=== PATIENT | male | born 1990 | race Caucasian/White ===

== ENCOUNTER 2018-08-29 16:58 | Emergency (ER) | payer BC ==
--- NOTE | 2018-08-29 17:59 | ER ---
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 Transition of care: patient was not received from another setting of care. Onset of symptoms was August 29, 2018. Risk Assessment: Do you want to hurt yourself or someone else? Patient reports no desire to harm self or others. Initial Sepsis Screen: Does the patient meet any 2 criteria? No. Patient's initial sepsis screen is negative. Does the patient have a suspected source of infection? No. Patient's initial sepsis screen is negative. Care prior to arrival: None. 17:04 Method Of Arrival: Ambulatory 17:04 Acuity: KYLIE 3 hj Triage Assessment: 17:07 General: Appears in no apparent distress. uncomfortable, Behavior is calm, cooperative, hj appropriate for age. Pain: Complains of pain in abdomen. GI: Reports nausea, vomiting. Historical: - Allergies: 17:07 Ativan; hj - Home Meds: 17:07 None [Active]; hj - PMHx: 17:07 vomiting; hj - PSHx: 17:07 L leg; hj - Immunization history:: Adult Immunizations up to date. - Social history:: Smoking status: Patient uses tobacco products, Patient/guardian denies using alcohol. - Ebola Screening: : Patient negative for fever greater than or equal to 101.5 degrees Fahrenheit, and additional compatible Ebola Virus Disease symptoms Patient denies exposure to infectious person Patient denies travel to an Ebola-affected area in the 21 days before illness onset. Screenin:08 Abuse screen: Denies threats or abuse. Denies injuries from another. Nutritional hj screening: No deficits noted. Tuberculosis screening: No symptoms or risk factors identified. Fall Risk None identified. Assessment: 17:08 GI: Abdomen is non-distended. hj 17:26 General: Appears in no apparent distress. well groomed, well developed, well nourished, tl3 Behavior is calm, cooperative, appropriate for age. Pain: Complains of pain in abdomen. Neuro: Level of Consciousness is awake, alert, obeys commands, Oriented to person, place, time, situation, Appropriate for age. Cardiovascular: Patient's skin is warm and dry. Respiratory: Airway is patent Respiratory effort is even, unlabored, Respiratory pattern is regular, symmetrical. : Urine is clear. EENT: No signs and/or symptoms were reported regarding the EENT system. Derm: No signs and/or symptoms reported regarding the dermatologic system. Musculoskeletal: No signs and/or symptoms reported regarding the musculoskeletal system. 17:54 Reassessment: provider ordered to cancel the iv and lab tests. patient for discharge. mg2 Vital Signs: 17:08 BP 126 / 83; Pulse 60; Resp 18; Temp 97.5(TE); Pulse Ox 97% on R/A; Weight 87.54 kg; hj Height 5 ft. 9 in. (175.26 cm); Pain 7/10; 17:41 BP 118 / 77 LA Supine (auto/lg); Pulse 51; Resp 18; Pulse Ox 96% on R/A; Pain 0/10; jp3 17:43 BP 117 / 74 LA Sitting (auto/lg); Pulse 58; Resp 18; Pulse Ox 95% on R/A; Pain 0/10; jp3 17:45 BP 115 / 78 LA Standing (auto/lg); Pulse 64; Resp 18; Pulse Ox 95% on R/A; Pain 0/10; jp3 17:08 Body Mass Index 28.50 (87.54 kg, 175.26 cm) hj 17:45 Patient stated " [place] normal/ same for all three positions" jp3 ED Course: 17:03 Patient arrived in ED. mr 17:07 Triage completed. hj 17:08 Arm band placed on right wrist. hj 17:08 Patient has correct armband on for positive identification. Placed in gown. Bed in low hj position. Call light in reach. Side rails up X 1. 17:13 Lilian Linn FNP-C is PHCP. kb 17:13 Jono Maguire MD is Attending Physician. kb 17:26 Guillermina Javed, [place] is Primary Nurse. tl3 17:26 No provider procedures requiring assistance completed. tl3 17:55 Urine Dipstick--Ancillary (enter results) Sent. jp3 18:03 Patient did not have IV access during this emergency room visit. tl3 Administered Medications: No medications were administered Outcome: 17:59 Discharge ordered by . kb 18:03 Discharged to home ambulatory. tl3 18:03 Condition: stable 18:03 Discharge instructions given to patient, Instructed on discharge instructions, follow up and referral plans. Demonstrated understanding of instructions, follow-up care. 18:04 Patient left the ED. tl3 Signatures: Lilian Linn, TOOL SETTER APPRENTICE-C TOOL SETTER APPRENTICE-CkBridget Hutson mr Adonis Hunter, RN RN Guillermina Valera RN RN tl3 Luis Angel Escobar, [place] RN [facility] [place] jp3 Corrections: (The following items were deleted from the chart) 17:11 17:08 Pulse 60bpm; Resp 18bpm; Pulse Ox 97% RA; Temp 97.5F Temporal; 87.54 kg; Height 5 hj ft. 9 in.; BMI: 28.5; Pain 7/10; hj
--- NOTE | 2018-08-29 18:00 | EDPHYS ---
Physician Documentation [facility] Name: Enoch Arita Age: 27 yrs Sex: Male : 1990 Arrival Date: 08/29/2018 Time: 17:03 Bed 23 Private MD: ED Physician Jono Maguire HPI: 08/29 18:52 This 27 yrs old Male presents to ER via Ambulatory with complaints of kb Vomiting. 18:52 The patient presents to the emergency department with nausea, vomiting. Onset: The kb symptoms/episode began/occurred 2 year(s) ago. Possible causes: unknown. The symptoms are aggravated by nothing. The symptoms are alleviated by nothing. Associated signs and symptoms: The patient has no apparent associated signs or symptoms. Severity of symptoms: At their worst the symptoms were mild moderate in the emergency department the symptoms are unchanged. The patient has not experienced similar symptoms in the past. The patient has not recently seen a physician. Pt reports he has been vomiting every morning for 2 years. Thinks he is dehydrated because his mouth is dry even after drinking 6 bottles of water in the past 4 hours. . Historical: - Allergies: 17:07 Ativan; hj - Home Meds: 17:07 None [Active]; hj - PMHx: 17:07 vomiting; hj - PSHx: 17:07 L leg; hj - Immunization history:: Adult Immunizations up to date. - Social history:: Smoking status: Patient uses tobacco products, Patient/guardian denies using alcohol. - Ebola Screening: : Patient negative for fever greater than or equal to 101.5 degrees Fahrenheit, and additional compatible Ebola Virus Disease symptoms Patient denies exposure to infectious person Patient denies travel to an Ebola-affected area in the 21 days before illness onset. ROS: 18:51 Constitutional: Negative for fever, chills, and weight loss, Cardiovascular: Negative kb for chest pain, palpitations, and edema, Respiratory: Negative for shortness of breath, cough, wheezing, and pleuritic chest pain, Back: Negative for injury and pain, : Negative for injury, bleeding, discharge, and swelling, MS/Extremity: Negative for injury and deformity, Skin: Negative for injury, rash, and discoloration, Neuro: Negative for headache, weakness, numbness, tingling, and seizure. 18:51 Abdomen/GI: Positive for nausea and vomiting, Negative for abdominal pain, diarrhea, constipation. Exam: 18:52 Constitutional: This is a well developed, well nourished patient who is awake, alert, kb and in no acute distress. Head/Face: Normocephalic, atraumatic. Chest/axilla: Normal chest wall appearance and motion. Nontender with no deformity. No lesions are appreciated. Cardiovascular: Regular rate and rhythm with a normal S1 and S2. No gallops, murmurs, or rubs. Normal PMI, no JVD. No pulse deficits. Respiratory: Lungs have equal breath sounds bilaterally, clear to auscultation and percussion. No rales, rhonchi or wheezes noted. No increased work of breathing, no retractions or nasal flaring. Abdomen/GI: Soft, non-tender, with normal bowel sounds. No distension or tympany. No guarding or rebound. No evidence of tenderness throughout. Back: No spinal tenderness. No costovertebral tenderness. Full range of motion. Skin: Warm, dry with normal turgor. Normal color with no rashes, no lesions, and no evidence of cellulitis. MS/ Extremity: Pulses equal, no cyanosis. Neurovascular intact. Full, normal range of motion. Neuro: Awake and alert, GCS 15, oriented to person, place, time, and situation. Cranial nerves II-XII grossly intact. Motor strength 5/5 in all extremities. Sensory grossly intact. Cerebellar exam normal. Normal gait. Vital Signs: 17:08 BP 126 / 83; Pulse 60; Resp 18; Temp 97.5(TE); Pulse Ox 97% on R/A; Weight 87.54 kg; hj Height 5 ft. 9 in. (175.26 cm); Pain 7/10; 17:41 BP 118 / 77 LA Supine (auto/lg); Pulse 51; Resp 18; Pulse Ox 96% on R/A; Pain 0/10; jp3 17:43 BP 117 / 74 LA Sitting (auto/lg); Pulse 58; Resp 18; Pulse Ox 95% on R/A; Pain 0/10; jp3 17:45 BP 115 / 78 LA Standing (auto/lg); Pulse 64; Resp 18; Pulse Ox 95% on R/A; Pain 0/10; jp3 17:08 Body Mass Index 28.50 (87.54 kg, 175.26 cm) hj 17:45 Patient stated " [place] normal/ same for all three positions" jp3 MDM: 17:13 Patient medically screened. kb 18:50 Data reviewed: vital signs, nurses notes. Data interpreted: Pulse oximetry: on room air kb is 95 %. Interpretation: normal. Counseling: I had a detailed discussion with the patient and/or guardian regarding: the historical points, exam findings, and any diagnostic results supporting the discharge/admit diagnosis, lab results, the need for outpatient follow up, a sand sifter, to return to the emergency department if symptoms worsen or persist or if there are any questions or concerns that arise at home. 18:53 ED course: Pt reports he has been to the ER multiple times for this and has had labs, kb ultrasounds, and CT with normal results. PT is doing a 24 hour urine now and has an appt with DR Hong next week. Educated that he needs to keep appt with Dr Hong. Urine and orthostatics wnl. Pt tolerating PO intake. . 08/29 17:37 Order name: Urine Dipstick--Ancillary (enter results) eb 08/29 17:40 Order name: Orthostatics; Complete Time: 17:55 kb Administered Medications: No medications were administered Disposition: 08/30 12:52 Co-signature as Attending Physician, Jono Maguire MD I agree with the assessment and wa plan of care. Disposition: 08/29/18 17:59 Discharged to Home. Impression: Vomiting, unspecified. - Condition is Stable. - Discharge Instructions: Nausea and Vomiting, Adult, [id number]. - Medication Reconciliation Form, Thank You Letter, Antibiotic Education, Prescription Opioid Use form. - Follow up: Emergency Department; When: As needed; Reason: Worsening of condition. Follow up: Private Physician; When: 2 - 3 days; Reason: Recheck today's complaints, Continuance of care, Re-evaluation by your physician. Signatures: Dispatcher [employer] Lilian Roche, JOE FUNEZ-Adonis Finney, RN Jono Butts MD MD wa Lowrey, Tammy, RN RN tl3 Corrections: (The following items were deleted from the chart) 08/29 17:55 17:20 IV Saline Lock ordered. kb mg2 17:56 17:20 Labs collected and sent ordered. kb mg2 18:04 17:59 08/29/2018 17:59 Discharged to Home. Impression: Vomiting, unspecified. Condition tl3 is Stable. Forms are Medication Reconciliation Form, Thank You Letter, Antibiotic Education, Prescription Opioid Use. Follow up: Emergency Department; When: As needed; Reason: Worsening of condition. Follow up: Private Physician; When: 2 - 3 days; Reason: Recheck today's complaints, Continuance of care, Re-evaluation by your physician. kb
[2018-08-29 21:27] LABS: Urine Blood NEGATIVE (NEG); Urine Glucose NEGATIVE (NEG); Urine Protein NEGATIVE (NEG); Urine Specific Gravity 1.015 (1.005-1.030)
== END 2018-08-29 18:04 | disposition home or self-care (01) ==
LOC: ER 16:58
DX: R11.10 Vomiting, unspecified (principal); Z72.0 Tobacco use; Z88.8 Allergy status to other drugs, medicaments and biological substances
CPT/HCPCS: 81003; 99283